=== PATIENT | female | born 1970 | race Caucasian/White ===

== ENCOUNTER 2021-02-14 20:33 | Emergency (ER) | payer OTHER ==
[2021-02-14 21:04] VITALS: BP 139/92; PULSE 84; TEMP 98.6; BMI 20.7
== END 2021-02-14 21:35 | disposition home or self-care (01) ==
LOC: FER 20:33
DX: S80.211A Abrasion, right knee, initial encounter (principal); S63.501A Unspecified sprain of right wrist, initial encounter; S60.511A Abrasion of right hand, initial encounter
CPT/HCPCS: 71046-TC-FY; 71101-TC-LT-FY; 73110-TC-RT-FY; 99285-25